=== PATIENT | female | born 1970 | race African-American/Black ===

== ENCOUNTER 2016-09-21 17:37 | Emergency (ER) | payer OTHER, MEDICAID ==
[~2016-09-21] VITALS: Ht 165.1 cm; Wt 105.0 kg
[~2016-09-21 17:37] MED LIST: ACET-2708 PO; DILT120T13 PO; GABA-290 PO; HYDR-3927; METO10TA3 PO; OMEP40CA PO; ONDA4TAB5 PO; PROT40 PO; SUCR1TAB PO
[2016-09-21] MEDS ORDERED: ONDANSETRON HCL 4MG/2ML VIAL IV STA (18:24)
[2016-09-21] MEDS ORDERED: SODIUM CHLORIDE 0.9% 1,000 ML IV ONE (18:24)
[2016-09-21 19:26] LABS: CHLORIDE 108 mEq/L (98-107); INDEX HEMOLYSI 3 (1-3); INDEX ICTERIC 1 (1-4); INDEX LIPEMIC 1 (1-3)
[2016-09-21 19:28] LABS: PROTHROMBIN TIME 10.7 sec
[2016-09-21 19:33] LABS: ALANINE AMINOTRANSFERASE 15 IU/L (13-61); ALBUMIN 3.1 g/dL (3.4-5.0); ANION GAP 10; CALCIUM 8.3 mg/dL (8.5-10.1); CARBON DIOXIDE 24 mEq/L (21-32); eGFR > 60 mL/min (>60)
[2016-09-21 19:37] LABS: UREA NITROGEN BLOOD 4 mg/dL (7-21)
[2016-09-21 19:38] LABS: CLARITY URINE CLEAR (CLEAR); COLOR URINE YELLOW (YELLOW); GLUCOSE URINE NEGATIVE (NEGATIVE); KETONES URINE NEGATIVE (NEGATIVE); LEUKOCYTE ESTERASE URINE NEGATIVE (NEGATIVE); NITRITE URINE NEGATIVE (NEGATIVE); OCCULT BLOOD URINE TRACE (NEGATIVE); PH URINE 7.5 (4.5-8.0); PROTEIN URINE NEGATIVE (NEGATIVE); SPECIFIC GRAVITY URINE 1.007 (1.005-1.030); UROBILINOGEN URINE 0.2 E.U./dL (0.2-1.0)
[2016-09-21 20:28] LABS: BASOPHILS % 0.7 % (0.0-2.0); EOSINOPHILS % 0.7 % (0.0-5.0); HEMATOCRIT. 43.4 % (36.0-48.0); HEMOGLOBIN. 14.1 g/dL (12.0-16.0); LYMPHOCYTES % 38.8 % (20.0-50.0); MEAN CORPUSCULAR HEMOGLOBIN 29.2 pg (28.0-32.0); MEAN CORPUSCULAR HGB CONC 32.6 g/dL (31.0-37.0); MEAN CORPUSCULAR VOLUME 89.5 fL (81.0-99.0); MEAN PLATELET VOLUME 7.8 fl (7.4-10.4); MONOCYTES % 7.1 % (2.0-8.0); NEUTROPHILS % 52.7 % (40.0-76.0); PLATELET 238 x1000/uL (130-400); RED BLOOD CELL COUNT 4.84 mill/uL (4.2-5.4); WHITE BLOOD COUNT 9.6 x1000/uL (4.5-11.0)
[2016-09-21] MEDS ORDERED: ONDANSETRON HCL 4MG/2ML VIAL IV ONE (20:30)
[2016-09-21 20:32] LABS: BACTERIA URINE TRACE; RBC URINE 0-2 /hpf (0-2); SQUAMOUS EPITHELIAL CELL URINE 1+ /lpf (RARE/1+); WBC URINE NONE SEEN /hpf (0-2)
[2016-09-21 21:20] VITALS: BP 119/75
== END 2016-09-21 21:32 | disposition home or self-care (01) ==
LOC: ER 17:40
DX: R53.1 Weakness (principal); K21.9 Gastro-esophageal reflux disease without esophagitis; I10 Essential (primary) hypertension; Z88.3 Allergy status to other anti-infective agents; Z91.041 Radiographic dye allergy status
CPT/HCPCS: 36415; 80053; 81001; 81025; 85025; 85610; 93005; 96361; 96374; 96376; 99285; J2405; J7030

== ENCOUNTER 2016-10-23 18:52 | Emergency (ER) | payer OTHER, MEDICAID ==
[~2016-10-23] VITALS: Ht 165.1 cm; Wt 85.0 kg
[2016-10-23] MEDS ORDERED: SODIUM CHLORIDE 0.9% 1,000 ML IV ONE (19:30)
[2016-10-23] MEDS ORDERED: FENTANYL CITRATE/PF 50MCG/ML 2ML VIAL IV ONE ×2 (19:30→21:30)
[2016-10-23] MEDS ORDERED: PANTOPRAZOLE SODIUM 40 MG/VIAL IV ONE (19:30)
[2016-10-23] MEDS ORDERED: ONDANSETRON HCL 4MG/2ML VIAL IV ONE ×2 (19:30→21:30)
[2016-10-23] MEDS ORDERED: ONDANSETRON INJ 8 MG in DEXTROSE 5% WATER 50 ML IV ONE (19:45)
[2016-10-23] MEDS ORDERED: PROCHLORPERAZINE MALEATE 10MG TABLET PO ONE (22:00)
[2016-10-23] MEDS ORDERED: PROCHLORPERAZINE 10MG/2ML VIAL IV ONE (22:30)
[2016-10-23] MEDS ORDERED: DIPHENHYDRAMINE 50MG/ML VIAL IV ONE (23:00)
[2016-10-23 23:03] LABS: CHLORIDE 106 mEq/L (98-107)
[2016-10-23 23:05] LABS: CALCIUM 8.9 mg/dL (8.5-10.1); INDEX HEMOLYSI 1 (1-3); INDEX ICTERIC 1 (1-4); INDEX LIPEMIC 1 (1-3)
[2016-10-23 23:07] LABS: ANION GAP 14; CARBON DIOXIDE 26 mEq/L (21-32); UREA NITROGEN BLOOD 6 mg/dL (7-21)
[2016-10-23 23:09] LABS: eGFR > 60 mL/min (>60)
[2016-10-24] MEDS ORDERED: DEXAMETHASONE 4MG/ML 1ML VIAL IV SCH
[2016-10-24] MEDS ORDERED: MORPHINE SULFATE 4 MG/ML CPJ (NOT FOR IM USE) IV ONE (00:30)
[2016-10-24] MEDS ORDERED: LORAZEPAM 2MG/ML CPJ IV ONE (00:30)
[2016-10-24 07:47] VITALS: BP 148/88
== END 2016-10-24 11:30 | disposition home or self-care (01) ==
LOC: ER 18:53
DX: F11.23 Opioid dependence with withdrawal (principal); K31.84 Gastroparesis; I50.9 Heart failure, unspecified; Z88.1 Allergy status to other antibiotic agents; Z91.041 Radiographic dye allergy status
CPT/HCPCS: 36415; 80048; 96374; 96375; 96376; 99284; C9113; J0780; J1100; J1200; J2060; J2270; J2405; J3010; J7030; J7060; Q0164

== ENCOUNTER 2017-05-30 08:11 | Emergency (ER) | payer OTHER, MEDICAID ==
[~2017-05-30] VITALS: Ht 167.6 cm; Wt 80.0 kg
[2017-05-30] MEDS ORDERED: KETOROLAC 30MG/ML VIAL IV STA (10:00)
[2017-05-30] MEDS ORDERED: SODIUM CHLORIDE 0.9% 1,000 ML IV ONE (10:00)
[2017-05-30] MEDS ORDERED: ONDANSETRON HCL 4MG/2ML VIAL IV STA (10:00)
[2017-05-30] MEDS ORDERED: PANTOPRAZOLE SODIUM 40 MG/VIAL IV STA (10:00)
[2017-05-30 10:19] LABS: BASOPHILS % 0.3 % (0.0-2.0); EOSINOPHILS % 0.2 % (0.0-5.0); HEMATOCRIT. 46.8 % (36.0-48.0); HEMOGLOBIN. 15.4 g/dL (12.0-16.0); LYMPHOCYTES % 24.5 % (20.0-50.0); MEAN CORPUSCULAR HEMOGLOBIN 29.3 pg (28.0-32.0); MEAN CORPUSCULAR VOLUME 89.3 fL (81.0-99.0); MEAN PLATELET VOLUME 8.8 fl (7.4-10.4); MONOCYTES % 5.3 % (2.0-8.0); NEUTROPHILS % 69.7 % (40.0-76.0); PLATELET 181 x1000/uL (130-400); RED BLOOD CELL COUNT 5.24 mill/uL (4.2-5.4); RED CELL DISTRIBUTION WIDTH 13.2 % (11.6-14.6)
[2017-05-30 10:24] LABS: CHLORIDE 109 mEq/L (98-107)
[2017-05-30 10:33] LABS: CARBON DIOXIDE 23 mEq/L (21-32)
[2017-05-30] MEDS ORDERED: MORPHINE SULFATE 2 MG/ML CPJ (NOT FOR IM USE) IV ONE ×2 (10:45→12:00)
[2017-05-30 11:11] LABS: CLARITY URINE CLEAR (CLEAR); COLOR URINE YELLOW (YELLOW); GLUCOSE URINE NEGATIVE (NEGATIVE); KETONES URINE 1+ (NEGATIVE); LEUKOCYTE ESTERASE URINE NEGATIVE (NEGATIVE); NITRITE URINE NEGATIVE (NEGATIVE); OCCULT BLOOD URINE 2+ (NEGATIVE); PROTEIN URINE NEGATIVE (NEGATIVE); SPECIFIC GRAVITY URINE 1.023 (1.005-1.030)
[2017-05-30 14:10] VITALS: BP 135/78
== END 2017-05-30 14:12 | disposition home or self-care (01) ==
LOC: ER 08:28
DX: R10.11 Right upper quadrant pain (principal); Z87.19 Personal history of other diseases of the digestive system; Z88.8 Allergy status to other drugs, medicaments and biological substances; Z88.1 Allergy status to other antibiotic agents; Z91.041 Radiographic dye allergy status; I51.9 Heart disease, unspecified
CPT/HCPCS: 36415; 76700; 80053; 81001; 81025; 83690; 85025; 96361; 96374; 96375; 96376; 99285; C9113; J1885; J2270; J2405; J7030

== ENCOUNTER 2019-05-18 14:38 | Emergency (ER) | payer MEDICARE, OTHER ==
[~2019-05-18] VITALS: Ht 157.5 cm; Wt 104.0 kg
[2019-05-18 17:02] VITALS: BP 123/64
== END 2019-05-18 18:09 | disposition home or self-care (01) ==
LOC: ER 14:38
DX: S63.592A Other specified sprain of left wrist, initial encounter (principal); M25.512 Pain in left shoulder; X58.XXXA Exposure to other specified factors, initial encounter; Y93.89 Activity, other specified; Y92.89 Other specified places as the place of occurrence of the external cause; Y99.8 Other external cause status; Z91.041 Radiographic dye allergy status; Z98.890 Other specified postprocedural states; Z88.1 Allergy status to other antibiotic agents; Z88.8 Allergy status to other drugs, medicaments and biological substances
CPT/HCPCS: 99281